=== PATIENT | male | born 1985 | race Caucasian/White ===

== ENCOUNTER 2018-01-09 12:59 | Observation (INO) | payer OTHER ==
[~2018-01-09] VITALS: Ht 188 cm; Wt 104.9 kg
[2018-01-09 13:36] LABS: HEMATOCRIT 50.8 % (38.0-50.0); HEMOGLOBIN 17.4 G/DL (12.5-16.6); MCH 28.9 PG (29.0-34.0); MCHC 34.3 G/DL (30.0-36.0); MCV 84.4 FL (86-99); PLATELET COUNT 261 K/uL (156-360); RBC DIS.WIDTH-CV 12.9 % (11.8-14.6); RBC DIS.WIDTH-SD 39.8 % (39-53); RED BLOOD COUNT 6.02 M/uL (4.00-5.50); WHITE BLOOD COUNT 7.3 K/uL (4.1-10.2)
[2018-01-09 13:47] LABS: CHLORIDE 104 mEq/L (99-109); POTASSIUM 4.5 mEq/L (3.7-5.4); SODIUM 140 mEq/L (136-147)
[2018-01-09 13:49] LABS: GLUCOSE 94 mg/dL (70-99)
[2018-01-09 13:50] LABS: PTT 27.2 SEC (25-37)
[2018-01-09 13:53] LABS: CREATININE 1.1 mg/dL (0.6-1.3); GFR ESTIMATE (CALCULATED) > 59 mL/min/ (58.99-99999)
[2018-01-09 13:54] LABS: UREA NITROGEN (BUN) 13 mg/dL (9-23)
[2018-01-09] MEDS ORDERED: ADULT ASPIRIN R81 MG PO (15:44)
[2018-01-09] MEDS ORDERED: ZANTAC150 MG PO (15:44)
[2018-01-09 16:53] VITALS: BP 121/84
[2018-01-09 19:43] VITALS: BP 145/82
[2018-01-10 00:12] VITALS: BP 119/66
[2018-01-10 03:45] VITALS: BP 123/65
[2018-01-10 05:28] LABS: BASOPHIL (%) 0.5 % (0-1); EOSINOPHIL (%) 4.8 % (0-5); EOSINOPHIL COUNT 0.4 K/uL (0-0.3); HEMATOCRIT 47.3 % (38.0-50.0); HEMOGLOBIN 15.6 G/DL (12.5-16.6); IMMATURE GRANULOCYTE (%) 0.3 % (0.0-0.7); LYMPHOCYTE (%) 41.9 % (15-42); LYMPHOCYTE COUNT 3.3 K/uL (1.0-2.8); MCH 27.9 PG (29.0-34.0); MCV 84.5 FL (86-99); MONOCYTE (%) 8.9 % (3-12); MONOCYTE COUNT 0.7 K/uL (0-0.8); NEUTROPHIL (%) 43.6 % (45-76); NEUTROPHIL COUNT 3.5 K/uL (1.8-6.4); PLATELET COUNT 274 K/uL (156-360); RBC DIS.WIDTH-CV 12.9 % (11.8-14.6); RBC DIS.WIDTH-SD 39.3 % (39-53); WHITE BLOOD COUNT 7.9 K/uL (4.1-10.2)
[2018-01-10 05:53] LABS: ALBUMIN 4.3 G/DL (3.2-4.8); ALKALINE PHOSPHATASE 51 IU/L (3-129); ALT (GPT) 23 IU/L (3-49); AST (GOT) 15 IU/L (2-34); CHLORIDE 100 MEQ/L (99-109); CREATININE 0.9 MG/DL (0.6-1.3); GFR ESTIMATE (CALCULATED) > 59 mL/min/ (58.99-99999); GLUCOSE 99 mg/dL (70-99); POTASSIUM 3.8 MEQ/L (3.7-5.4); SODIUM 135 MEQ/L (136-147); TOTAL BILIRUBIN 1.5 MG/DL (0.0-1.0); TOTAL PROTEIN 6.7 G/DL (6.4-8.3); UREA NITROGEN (BUN) 16 mg/dL (9-23)
[2018-01-10 08:25] VITALS: BP 124/78
[2018-01-10] MEDS ORDERED: ELIQUIS5 MG PO (10:23)
[2018-01-10 11:30] VITALS: BP 135/80
[2018-01-10] MEDS ORDERED: MUCINEX600 MG PO (12:33)
== END 2018-01-10 16:57 | disposition home or self-care (01) ==
LOC: EME 12:59 → EDOF 15:33 → 4SOUTH 15:33 → ENRESERV 15:35 → 4SOUTH 16:37
PROVIDERS: Emergency Medicine; Hospitalist
DX: I26.99 Other pulmonary embolism without acute cor pulmonale (principal); K21.9 Gastro-esophageal reflux disease without esophagitis; Z79.82 Long term (current) use of aspirin; D75.1 Secondary polycythemia
CPT/HCPCS: 71046; 71275; 80048; 80053; 83880; 85025; 85027; 85610; 85730; 93005; 93971; 99281; 99285; G0378; J7030